=== PATIENT | female | born 1985 | race Caucasian/White ===

== ENCOUNTER 2017-05-16 17:37 | Emergency (ER) | payer SELFPAY, MEDICAID | END 2017-05-16 18:10 | disposition left against medical advice (07) | LOC: E/R 17:37 | DX: Z53.21 Procedure and treatment not carried out due to patient leaving prior to being seen by health care provider (principal) ==

== ENCOUNTER 2017-12-01 09:08 | Inpatient (IN) | payer OTHER ==
[2017-12-01] MEDS ORDERED: LIDOCAINE 1% (MPF) 30 ML INJ INJ (10:00)
[2017-12-01] MEDS ORDERED: BUTORPHANOL 1 MG INJ IV (10:00)
[2017-12-01] MEDS ORDERED: IBUPROFEN 600 MG TAB PO (10:00)
[2017-12-01] MEDS ORDERED: OXYTOCIN 30 UNITS/LR 500 ML IV ×2 (10:00→18:00)
[2017-12-01] MEDS ORDERED: MISOPROSTOL 200 MCG TAB PR ×2 (10:00→18:00)
[2017-12-01] MEDS ORDERED: METHYLERGONOVINE 0.2 MG INJ IM ×2 (10:00→18:00)
[2017-12-01] MEDS ORDERED: CARBOPROST 250 MCG INJ IM ×2 (10:00→18:00)
[2017-12-01] MEDS ORDERED: BUTORPHANOL 2 MG INJ IV (10:00)
[2017-12-01 10:39] LABS: ADD MAN DIFF? NO
[2017-12-01 10:42] LABS: BASOPHILS % 0.5 % (0.0-2.0); EOSINOPHILS % 0.5 % (0.0-7.0); HEMATOCRIT 35.2 % (37.0-47.0); LYMPHOCYTES # 1.9 10^3/ul (0.8-2.9); LYMPHOCYTES % 22.6 % (15.0-51.0); MEAN CORPUSCULAR HEMOGLOBIN 31.5 pg (29.0-33.0); MEAN CORPUSCULAR HGB CONC 34.1 g/dl (32.0-37.0); MEAN CORPUSCULAR VOLUME 92.4 fl (82.0-101.0); MEAN PLATELET VOLUME 9.8 fl (7.4-10.4); MONOCYTE # 0.6 10^3/ul (0.3-0.9); MONOCYTES % 7.1 % (0.0-11.0); NEUTROPHIL # 5.7 10^3/ul (1.6-7.5); NEUTROPHILS % 68.5 % (39.0-77.0); PLATELET COUNT 204 10^3/UL (140-415); RED BLOOD COUNT 3.81 10^6/ul (4.20-5.40); RED CELL DISTRIBUTION WIDTH 14.1 % (11.5-14.5)
[2017-12-01 10:42] LABS: WHITE BLOOD COUNT 8.3 10^3/ul (4.8-10.8)
[2017-12-01] MEDS: AMPICILLIN 2 GM/NS (PMX) 100 ML IV (10:56)
[2017-12-01] MEDS: LACTATED RINGER'S 1,000 ML IV* ×2 (10:56→17:38)
[2017-12-01 11:02] LABS: PT RATIO 0.9
[2017-12-01 11:11] LABS: INR 0.89; PARTIAL THROMBOPLASTIN TIME 26.6 Sec (25.0-35.0); PROTIME 12.1 Sec (11.9-14.9)
[2017-12-01 11:37] LABS: HEPATITIS B SURFACE ANTIGEN NEGATIVE (NEGATIVE)
[2017-12-01 12:13] LABS: ADD UMIC YES; UR ASCORBIC ACID NEGATIVE (NEGATIVE); UR BACTERIA MODERATE /HPF (NONE SEEN); UR BILIRUBIN (Dip) NEGATIVE (NEGATIVE); UR BLOOD (Dip) 3+ mg/dL (NEGATIVE); UR CLARITY CLOUDY (CLEAR); UR COLOR RED (YELLOW); UR GLUCOSE (Dip) NEGATIVE (NEGATIVE); UR KETONES (Dip) NEGATIVE (NEGATIVE); UR LEUKOCYTE ESTERASE (Dip) TRACE Leu/ul (NEGATIVE); UR NITRITE (Dip) NEGATIVE (NEGATIVE); UR RBC 18 /HPF (0-5); UR SPECIFIC GRAVITY (Dip) 1.005 (1.003-1.030); UR SQUAMOUS EPITHELIAL CELL MANY /HPF (FEW); UR TOTAL PROTEIN (Dip) NEGATIVE (NEGATIVE); UR UROBILINOGEN (Dip) NEGATIVE (NEGATIVE); UR WBC 12 /HPF (0-5)
[2017-12-01] MEDS: AMPICILLIN 1 GM/NS (PMX) 50 ML IV (14:51)
[2017-12-01] MEDS: OXYTOCIN 30 UNITS/LR 500 ML IV ×2 (16:17→16:19)
[2017-12-01] MEDS ORDERED: BENZOCAINE 20% 56 ML SPRAY TOP (18:00)
[2017-12-01] MEDS ORDERED: WITCH HAZEL/GLYCERIN PAD PR (18:00)
[2017-12-01] MEDS ORDERED: HYDROCODONE/APAP (5/325) TAB PO ×2 (18:00)
[2017-12-01] MEDS ORDERED: DIBUCAINE 1% 30 GM OINT PR (18:00)
[2017-12-01] MEDS ORDERED: ZOLPIDEM 5 MG TAB PO (18:00)
[2017-12-01 18:39] LABS: RAPID PLASMA REAGIN NONREACTIVE (NR)
[2017-12-01] MEDS: IBUPROFEN 600 MG TAB PO ×2 (18:39→23:28)
[2017-12-01] MEDS: MAGNESIUM HYDROXIDE 30ML CUP PO (21:10)
[2017-12-01] MEDS: SENNA/DOCUSATE NA (8.6MG/50MG) TAB PO (21:10)
[2017-12-02] MEDS: IBUPROFEN 600 MG TAB PO ×4 (05:29→23:56)
[2017-12-02 08:05] LABS: ADD MAN DIFF? NO
[2017-12-02 08:11] LABS: BASOPHIL # 0.1 10^3/ul (0.0-0.1); BASOPHILS % 0.6 % (0.0-2.0); EOSINOPHILS # 0.1 10^3/ul (0.0-0.5); EOSINOPHILS % 0.9 % (0.0-7.0); HEMATOCRIT 32.2 % (37.0-47.0); HEMOGLOBIN 10.8 g/dl (12.0-16.0); LYMPHOCYTES # 2.3 10^3/ul (0.8-2.9); LYMPHOCYTES % 21.4 % (15.0-51.0); MEAN CORPUSCULAR HEMOGLOBIN 31.5 pg (29.0-33.0); MEAN CORPUSCULAR HGB CONC 33.5 g/dl (32.0-37.0); MEAN CORPUSCULAR VOLUME 93.9 fl (82.0-101.0); MEAN PLATELET VOLUME 9.8 fl (7.4-10.4); MONOCYTE # 0.6 10^3/ul (0.3-0.9); MONOCYTES % 5.2 % (0.0-11.0); NEUTROPHIL # 7.8 10^3/ul (1.6-7.5); NEUTROPHILS % 71.5 % (39.0-77.0); PLATELET COUNT 191 10^3/UL (140-415); RED BLOOD COUNT 3.43 10^6/ul (4.20-5.40); RED CELL DISTRIBUTION WIDTH 14.2 % (11.5-14.5)
[2017-12-02] MEDS: SENNA/DOCUSATE NA (8.6MG/50MG) TAB PO ×2 (09:13→21:00)
[2017-12-02] MEDS: MAGNESIUM HYDROXIDE 30ML CUP PO ×2 (09:13→21:00)
[2017-12-02] MEDS: LANOLIN 7 GM TUBE TOP (23:56)
[2017-12-03] MEDS: IBUPROFEN 600 MG TAB PO (05:58)
[2017-12-03] MEDS: DIPHTH/TET/ACEL PERTUSS (ADULT) 0.5 ML VIAL IM* (09:00)
[2017-12-03] MEDS: MEASLES,MUMPS,RUBELLA VACCINE INJ SC* (09:00)
[2017-12-03] MEDS: VARICELLA VACCINE LIVE/PF 1,350 UNIT/0.5 ML ML SC* (09:00)
[2017-12-03] MEDS: SENNA/DOCUSATE NA (8.6MG/50MG) TAB PO (09:03)
[2017-12-03] MEDS: MAGNESIUM HYDROXIDE 30ML CUP PO (09:03)
== END 2017-12-03 13:30 | disposition home or self-care (01) | DRG 775 ==
LOC: OBT 09:08 → L-D 09:09 → OBT 09:28 → L-D 09:28 → PP1 17:46
PROC: 10E0XZZ Delivery of Products of Conception, External Approach (ICD-10-PCS; principal; 2017-12-01)
DX: O77.0 Labor and delivery complicated by meconium in amniotic fluid (principal); O69.81X0 Labor and delivery complicated by cord around neck, without compression, not applicable or unspecified; Z3A.39 39 weeks gestation of pregnancy; Z37.0 Single live birth
CPT/HCPCS: 81001; 85025; 85610; 85730; 86592; 86850; 86900; 86901; 87086; 87340